=== PATIENT | female | born 1980 | race Two or more races ===

== ENCOUNTER 2022-03-19 22:56 | Emergency (ER) | payer OTHER ==
[~2022-03-19] VITALS: Ht 162.6 cm; Wt 102.1 kg
[2022-03-20] MEDS ORDERED: BUDESONIDE0.5 MG/2 M IH (02:35)
[2022-03-20] MEDS ORDERED: ALBUTEROL2.5 MG/3 M IH (02:35)
[2022-03-20] MEDS ORDERED: PROAIR RESPICL90 MCG IH (02:35)
[2022-03-20] MEDS ORDERED: SYMBICORT 16010.2 GM IH (02:35)
== END 2022-03-20 02:53 ==
LOC: ER 22:56
DX: J45.901 Unspecified asthma with (acute) exacerbation (principal)